=== PATIENT | male | born 1970 | race Caucasian/White ===

== ENCOUNTER 2016-10-08 15:49 | Emergency (ER) | payer MEDICAID, OTHER ==
[~2016-10-08] VITALS: Ht 185.4 cm; Wt 136.8 kg
[~2016-10-08 15:49] MED LIST: ASPI1TAB PO
[2016-10-08] MEDS ORDERED: ASPI81 PO (15:50)
[2016-10-08] MEDS ORDERED: IBUP-1681 PO (15:55)
[2016-10-08 18:08] VITALS: BP 144/87
[2016-10-08 18:13] LABS: BASOPHILS % (AUTO) 0.5 % (0.0-2.0); EOSINOPHILS % (AUTO) 3.9 % (1.0-6.0); HEMATOCRIT 44.4 % (41-53); HEMOGLOBIN 15.4 g/dL (13.5-17.5); LYMPHOCYTES # (AUTO) 4.5 K/uL (1.0-4.8); LYMPHOCYTES % (AUTO) 39.2 % (22.0-44.0); MEAN CORPUSCULAR HEMOGLOBIN 32.1 pg (26.0-34.0); MEAN CORPUSCULAR HGB CONC 34.8 G/dL (31.0-37.0); MEAN CORPUSCULAR VOLUME 92 fL (80-100); MONOCYTES % (AUTO) 8.3 % (2.0-9.0); NEUTROPHILS # (AUTO) 5.5 K/uL (1.8-7.7); NEUTROPHILS % (AUTO) 48.1 % (40.0-70.0); PLATELET COUNT (AUTO) 276 K/uL (150-450); WHITE BLOOD COUNT (AUTO) 11.4 K/uL (4.5-11.0)
[2016-10-08] MEDS ORDERED: DONNATAL/LIDOCAINE/MAALOX 55 ML BOTTLE PO ONE (18:15)
[2016-10-08] MEDS ORDERED: ASPIRIN 81 MG CHEWABLE TABLET PO ONE (18:15)
[2016-10-08 18:22] LABS: ANION GAP 11 mmol/L (8-16); CALCIUM, TOTAL 9.4 mg/dL (8.8-10.5); CARBON DIOXIDE 28 mmol/L (22-29); CHLORIDE 103 mmol/L (98-107); CREATININE 0.98 mg/dL (0.60-1.30); GLOMERULAR FILTR. RATE CALC > 60 mL/min (>60); POTASSIUM 4.1 mmol/L (3.5-5.1); SODIUM SERUM 142 mmol/L (136-145); UREA NITROGEN, BLOOD 12 mg/dL (7-18)
[2016-10-08 18:28] LABS: ALANINE AMINOTRANSFERASE 48 U/L (12-78); ALBUMIN 3.8 g/dL (3.4-5.0); ASPARTATE AMINOTRANSFERASE 23 U/L (15-37); BILIRUBIN,TOTAL 0.4 mg/dL (0.1-1.0); TOTAL PROTEIN, SERUM 6.6 g/dL (6.4-8.2)
[2016-10-08 18:36] LABS: B-TYPE NATRIURETIC PEPTIDE < 5 pg/mL (0-100)
== END 2016-10-08 19:03 | disposition home or self-care (01) ==
LOC: EMS 15:50
DX: K43.9 Ventral hernia without obstruction or gangrene (principal); R07.9 Chest pain, unspecified; F43.9 Reaction to severe stress, unspecified; I10 Essential (primary) hypertension; F17.210 Nicotine dependence, cigarettes, uncomplicated; Z87.442 Personal history of urinary calculi; Z79.82 Long term (current) use of aspirin
CPT/HCPCS: 36415; 71010; 80053; 83690; 83880; 84484; 85025; 93005; 99285; Z7610

== ENCOUNTER 2016-11-26 20:17 | Emergency (ER) | payer OTHER ==
[~2016-11-26] VITALS: Ht 185.4 cm; Wt 136.4 kg
[~2016-11-26 20:17] MED LIST changes: -ASPI1TAB PO; +ASPI81 PO; +IBUP-1681 PO
[2016-11-26] MEDS ORDERED: [UNRECOGNIZED DRUG - REMARK] PO (20:35)
[2016-11-26] MEDS ORDERED: LIDOCAINE HCL 5% TRANSDERMAL PATCH TD ONE (21:30)
[2016-11-26] MEDS ORDERED: KETOROLAC TROMETHAMINE 30 MG/ML VIAL IM ONE (22:15)
[2016-11-26 22:19] VITALS: BP 131/80
== END 2016-11-26 22:28 | disposition home or self-care (01) ==
LOC: EMS 20:19
DX: S20.212A Contusion of left front wall of thorax, initial encounter (principal); I10 Essential (primary) hypertension; F17.210 Nicotine dependence, cigarettes, uncomplicated; Z79.82 Long term (current) use of aspirin; V00.131A Fall from skateboard, initial encounter; Y93.89 Activity, other specified; Y92.89 Other specified places as the place of occurrence of the external cause; Y99.8 Other external cause status
CPT/HCPCS: 71101; 96372; 99284; J1885